=== PATIENT | female | born 1995 | race Caucasian/White ===

== ENCOUNTER → 2016-06-27 | Outpatient (CLI) | payer BC | LOC: BMCIMAGING 15:59 | PROVIDERS: ATTEND Family Medicine | DX: S92.415A Nondisplaced fracture of proximal phalanx of left great toe, initial encounter for closed fracture (principal) ==

== ENCOUNTER → 2016-07-25 | Outpatient (CLI) | payer BC | LOC: BMCIMAGING 08:31 | PROVIDERS: ATTEND Podiatrist Foot & Ankle Surgery | DX: S92.415D Nondisplaced fracture of proximal phalanx of left great toe, subsequent encounter for fracture with routine healing (principal) ==

== ENCOUNTER → 2018-07-08 | Outpatient (CLI) | payer BC | LOC: BRMIMAGING 12:12 | PROVIDERS: ATTEND Internal Medicine | DX: R22.1 Localized swelling, mass and lump, neck (principal) ==